=== PATIENT | male | born 1935 | race American Indian/Alaskan Native ===

== ENCOUNTER 2019-07-09 13:02 | Emergency (ER) | payer OTHER ==
--- OUTSIDE RECORDS SUMMARY | 2019-07-09 13:05 | XMS REPORT ---
:1935 Author Organization eClinicalWorks Care Team Providers Name Role Phone BurrellShankar Provider Role Unavailable Allergies, Adverse Reactions, Alerts Substance Reaction Event Type N.K.D.A. Info Not Available Non Drug Allergy Problems Problem Type Condition Code Onset Dates Condition Status Assessment Mixed hyperlipidemia E78.2 Active Assessment Type 2 diabetes mellitus with E11.8 Active complication, unspecified whether [facility] insulin use Assessment HTN (hypertension) with goal to be I10 Active determined Assessment Noncompliance with dietary Z91.11 Active restriction Assessment Osteoarthritis of both knees, M17.0 Active unspecified osteoarthritis type Assessment Hypothyroidism, unspecified type E03.9 Active Problem HTN (hypertension) with goal to be I10 Active determined Problem Hypothyroidism, unspecified type E03.9 Active Problem Mixed hyperlipidemia E78.2 Active Problem Noncompliance with dietary Z91.11 Active restriction Problem Osteoarthritis of both knees, M17.0 Active unspecified osteoarthritis type Problem Type 2 diabetes mellitus with E11.8 Active complication, unspecified whether [facility] insulin use Medications Medication Code Code Instructions Start End Status Dosage System Date Date Atorvastatin [facility] 04951192682 20 MG Orally Active 1 tablet Calcium Once a day Levothyroxine ND 79750801254 100 MCG Orally Active 1 tablet on Sodium Once a day an empty stomach in the morning Metformin HCl ND 32708614768 1000 MG Orally Active 1 tablet Once a day with a meal Glimepiride ND 15226438735 4 MG Orally Active 1 tablet Twice a day with breakfast or the first main meal of the day Carvedilol ND 49464387294 12.5 MG Orally Active 1 tablet Once a day Meloxicam ND 76963935217 7.5 MG Orally Active 1 tablet Once a day Results No Known Results Summary Purpose eClinicalWorks Submission
--- OUTSIDE RECORDS SUMMARY | 2019-07-09 13:05 | XMS REPORT ---
:1935 Author Organization eClinicalWorks Care Team Providers Name Role Phone Shankar Burrell Provider Role Unavailable Allergies No Known Allergies Problems Problem Type Condition Code Onset Dates Condition Status Problem HTN (hypertension) with goal to be I10 Active determined Problem Hypothyroidism, unspecified type E03.9 Active Problem Mixed hyperlipidemia E78.2 Active Problem Noncompliance with dietary Z91.11 Active restriction Problem Osteoarthritis of both knees, M17.0 Active unspecified osteoarthritis type Problem Type 2 diabetes mellitus with E11.8 Active complication, unspecified whether retirement insulin use Medications Medication Code Code Instructions Start End Status Dosage System Date Date Glimepiride [facility] [address]-74 4 MG Orally Active 1 tablet Twice a day Levothyroxine [facility] 14159132128 100 MCG Orally Active 1 tablet Sodium Once a day on an empty stomach in the morning Carvedilol [facility] 88197763989 12.5 MG Orally Active 1 tablet Once a day Meloxicam [facility] 11311646293 7.5 MG Orally Active 1 tablet Once a day Atorvastatin [facility] 47736458467 20 MG Orally Active 1 tablet Calcium Once a day Metformin HCl [facility] 15475032136 1000 MG Orally Active 1 tablet Once a day with a meal Results No Known Results Summary Purpose eClinicalWorks Submission
--- OUTSIDE RECORDS SUMMARY | 2019-07-09 13:05 | XMS REPORT ---
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
--- OUTSIDE RECORDS SUMMARY | 2019-07-09 13:05 | XMS REPORT ---
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 Problem Mixed hyperlipidemia E78.2 Active Problem HTN (hypertension) with goal to be I10 Active determined Problem Type 2 diabetes mellitus with E11.8 Active complication, unspecified whether terminal manager insulin use Problem Noncompliance with dietary Z91.11 Active restriction Medications Medication Code Code Instructions Start End Status Dosage System Date Date Meloxicam ND 97679281842 7.5 MG Orally Active 1 tablet Once a day Metformin HCl ND 19695420489 1000 MG Orally Active 1 tablet TWICE A DAY with a meal One Touch Ultra ND 528307844864 1 In Vitro Sep 09, Aug Active with Test Strips twice daily 2018, testing (ICD 10: E11.8) 2021 device Carvedilol ND 65864617341 12.5 MG Orally Active 1 tablet Once a day Levothyroxine ND 89450546352 100 MCG Orally Active 1 tablet on Sodium Once a day an empty stomach in the morning Glimepiride ND 35009800895 4 MG Orally Active 1 tablet Twice a day with breakfast or the first main meal of the day Tradjenta ND 39905272537 5 MG Orally Sep 09, Active 1 tablet Once a day 2018 Lisinopril ND 92347457309 2.5 MG Orally Sep 09, Active 1 tablet Once a day 2018 Atorvastatin ND 54063536822 20 MG Orally Active 1 tablet Calcium Once a day Results No Known Results Summary Purpose eClinicalWorks Submission
--- OUTSIDE RECORDS SUMMARY | 2019-07-09 13:05 | XMS REPORT ---
:1935 Author Organization eClinicalWorks Care Team Providers Name Role Phone Indra Shankar Provider Role Unavailable Allergies, Adverse Reactions, Alerts Substance Reaction Event Type N.K.D.A. 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 Problem Mixed hyperlipidemia E78.2 Active Problem HTN (hypertension) with goal to be I10 Active determined Problem Type 2 diabetes mellitus with E11.8 Active complication, 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 Problem Noncompliance with dietary Z91.11 Active restriction Assessment Need for pneumococcal vaccine Z23 Active Assessment Hypothyroidism, unspecified type E03.9 Active Assessment Mixed hyperlipidemia E78.2 Active Assessment Noncompliance with dietary Z91.11 Active restriction Assessment HTN (hypertension) with goal to be I10 Active determined Assessment Osteoarthritis of both knees, M17.0 Active unspecified osteoarthritis type Assessment 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 Medications Medication Code Code Instructions Start End Status Dosage System Date Date Metformin HCl ND 35857661633 1000 MG Orally Active 1 tablet TWICE A DAY with a meal Meloxicam ND 74523289507 7.5 MG Orally Active 1 tablet Once a day Lisinopril ND 76744578406 2.5 MG Orally Sep 09, Active 1 tablet Once a day 2018 Levothyroxine ND 79935587221 100 MCG Orally Active 1 tablet on Sodium Once a day an empty stomach in the morning Atorvastatin ND 27398205838 20 MG Orally Active 1 tablet Calcium Once a day One Touch Ultra ND 966858301413 1 In Vitro Sep 09October Active with Test Strips twice daily 2018 device Tradjenta ND 03507275418 5 MG Orally Feb 27, Active 1 tablet Once a day 2018 Carvedilol [facility] 40171577648 12.5 MG Orally Active 1 tablet Once a day Glimepiride [facility] 31180774698 4 MG Orally Active 1 tablet Twice a day with breakfast or the first main meal of the day Results No Known Results Immunizations Vaccine Administration Date Prevnar 13 -Pneumonia Vaccine Sep 09, 2018 Summary Purpose eClinicalWorks Submission
--- OUTSIDE RECORDS SUMMARY | 2019-07-09 13:06 | XMS REPORT ---
:1935 Author Organization eClinicalWorks Care Team Providers Name Role Phone Indra Shankar Provider Role Unavailable Allergies, Adverse Reactions, Alerts Substance Reaction Event Type N.K.D.A. 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 Problem Mixed hyperlipidemia E78.2 Active Problem HTN (hypertension) with goal to be I10 Active determined Problem Type 2 diabetes mellitus with E11.8 Active complication, unspecified whether residential insulin use Problem Noncompliance with dietary Z91.11 Active restriction Assessment Osteoarthritis of both knees, M17.0 Active unspecified osteoarthritis type Assessment Hypothyroidism, unspecified type E03.9 Active Assessment Mixed hyperlipidemia E78.2 Active Assessment Noncompliance with dietary Z91.11 Active restriction Assessment HTN (hypertension) with goal to be I10 Active determined Medications Medication Code Code Instructions Start End Status Dosage System Date Date Carvedilol [facility] 45322479054 12.5 MG Orally Active 1 tablet Once a day One Touch Ultra [facility] 700385070925 1 In Vitro Sep 09Aug Active with Test Strips twice daily 2018, testing (ICD 10: E11.8) 2021 device Tradjenta ND 40220461345 5 MG Orally Active 1 tablet Once a day Metformin HCl ND 22647448446 1000 MG Orally Active 1 tablet TWICE A DAY with a meal Meloxicam ND 36619183419 7.5 MG Orally Active 1 tablet Once a day Atorvastatin ND 55936639985 20 MG Orally Active 1 tablet Calcium Once a day Lisinopril ND 51817396816 2.5 MG Orally Active 1 tablet Once a day Glimepiride ND 10038228239 4 MG Orally Active 1 tablet Once a day with breakfast or the first main meal of the day Levothyroxine [facility] 01479848622 100 MCG Orally Active 1 tablet on Sodium Once a day an empty stomach in the morning Results No Known Results Summary Purpose eClinicalWorks Submission
--- OUTSIDE RECORDS SUMMARY | 2019-07-09 13:06 | XMS REPORT ---
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 Problem Noncompliance with dietary Z91.11 Active restriction Assessment Osteoarthritis of both knees, M17.0 Active unspecified osteoarthritis type Assessment Hypothyroidism, unspecified type E03.9 Active Assessment Mixed hyperlipidemia E78.2 Active Assessment Noncompliance with dietary Z91.11 Active restriction Assessment HTN (hypertension) with goal to be I10 Active determined Medications Medication Code Code Instructions Start End Status Dosage System Date Date Atorvastatin [facility] 07629833154 20 MG Orally Active 1 tablet Calcium Once a day Glimepiride ND 10561805364 4 MG Orally Active 1 tablet Twice a day with breakfast or the first main meal of the day Tradjenta [facility] 82231210406 5 MG Orally Active 1 tablet Once a day Metformin HCl ND 96361146833 1000 MG Orally Active 1 tablet TWICE A DAY with a meal Meloxicam ND 29374638997 7.5 MG Orally Active 1 tablet Once a day Carvedilol ND 15087838685 12.5 MG Orally Active 1 tablet Once a day Lisinopril ND 86569285118 2.5 MG Orally Active 1 tablet Once a day Levothyroxine ND 70954936808 100 MCG Orally Active 1 tablet on Sodium Once a day an empty stomach in the morning One Touch Ultra [facility] 426536675791 1 In Vitro Sep 09, Aug Active with Test Strips twice daily 2018, testing (ICD 10: E11.8) 2021 device Results No Known Results Summary Purpose eClinicalWorks Submission
--- OUTSIDE RECORDS SUMMARY | 2019-07-09 13:06 | XMS REPORT ---
:1935 Author Organization eClinicalWorks Care Team Providers Name Role Phone BurrellKarenh Provider Role Unavailable Allergies, Adverse Reactions, Alerts Substance Reaction Event Type N.K.D.A. 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 Problem Mixed hyperlipidemia E78.2 Active Problem HTN (hypertension) with goal to be I10 Active determined Problem Type 2 diabetes mellitus with E11.8 Active complication, unspecified whether termination clerk insulin use Problem Noncompliance with dietary Z91.11 Active restriction Medications Medication Code Code Instructions Start End Status Dosage System Date Date Levothyroxine [facility] 81819737797 100 MCG Orally Active 1 tablet on Sodium Once a day an empty stomach in the morning Carvedilol [facility] 38801406190 12.5 MG Orally Active 1 tablet Once a day Metformin HCl ND 06416171201 1000 MG Orally Active 1 tablet with TWICE A DAY a meal Tradjenta [facility] 47910075898 5 MG Orally Active 1 tablet Once a day Lisinopril ND 29174537894 2.5 MG Orally Active 1 tablet Once a day Atorvastatin ND 33131505924 20 MG Orally Active 1 tablet Calcium Once a day Mupirocin [facility] 41584523736 2 % Externally Jul 01Jun Active 1 application Calcium BID 2018 Doxycycline [facility] 79411697637 100 MG Orally Jul 01Jun Active 1 tablet Hyclate Twice a day 2018 Glimepiride [facility] 19318127765 4 MG Orally Active 1 tablet with Once a day breakfast or the first main meal of the day Meloxicam ND 89077595985 7.5 MG Orally Active 1 tablet Once a day One Touch Ultra [facility] 144934327267 1 In Vitro Feb 27, Aug Active with testing Test Strips twice daily 2018, device (ICD 10: 2021 E11.8) Results No Known Results Summary Purpose eClinicalWorks Submission
--- NOTE | 2019-07-09 15:13 | RAD REPORT ---
EXAM DESCRIPTION: USExtremity Venous Uni Ltd07/09/2019 2:55 pm CLINICAL HISTORY: Right leg pain and swelling. COMPARISON: None. FINDINGS: Right common femoral, superficial femoral, popliteal and right posterior tibial veins are compressible and demonstrate augmentation. Doppler demonstrates good flow. IMPRESSION: No evidence of deep venous thrombosis involving the right lower extremity.
[2019-07-09 15:31] LABS: Absolute Lymphocytes (CBC) 2.8 K/uL (0.7-4.9); Basophils % 1.3 % (0-1.3); Hematocrit 45.1 % (39.6-49.0); Lymphocytes % 30.2 % (15.3-44.8); MPV 8.9 fL (7.6-11.3); RBC Red Blood Cell Count 5.26 M/uL (4.33-5.43)
[2019-07-09] MEDS ORDERED: NA CHLORIDE 0.9% 100 ML IV ONE (15:39)
[2019-07-09] MEDS ORDERED: CEFAZOLIN/SWI 1gm 1 GM/10 ML SYR ONE (15:39)
[2019-07-09 15:41] LABS: Potassium 4.9 mmol/L (3.5-5.1)
--- NOTE | 2019-07-09 16:15 | ER ---
Nurse's Notes [facility] Name: Lizette Cazares Age: 84 yrs Sex: Male : 1935 Arrival Date: 07/09/2019 Time: 13:04 Bed 6 Private MD: Shankar Burrell Diagnosis: Cellulitis of right lower limb;Tinea corporis Presentation: 07/09 13:17 Presenting complaint: Worsening right lower leg wound x 1 week. Started doxycycline and hb Bactroban 07/01. Transition of care: patient was not received from another setting of care. Onset of symptoms was July 09, 2019. Risk Assessment: Do you want to hurt yourself or someone else? Patient reports no desire to harm self or others. Initial Sepsis Screen: Does the patient meet any 2 criteria? No. Patient's initial sepsis screen is negative. Does the patient have a suspected source of infection? No. Patient's initial sepsis screen is negative. Care prior to arrival: None. 13:17 Method Of Arrival: Ambulatory hb 13:17 Acuity: JEREMIAH 3 hb Triage Assessment: 13:20 General: Appears in no apparent distress. comfortable, Behavior is calm, cooperative, bp appropriate for age. Pain: Complains of pain in right [place]. EENT: No deficits noted. Neuro: No deficits noted. Cardiovascular: No deficits noted. Respiratory: No deficits noted. GI: No signs and/or symptoms were reported involving the gastrointestinal system. : No signs and/or symptoms were reported regarding the genitourinary system. Derm: Wound noted right leg. Musculoskeletal: No deficits noted. Historical: - Allergies: 13:19 No Known Allergies; hb - Immunization history:: Adult Immunizations up to date. - Social history:: Smoking status: Patient/guardian denies using tobacco. - Ebola Screening: : No symptoms or risks identified at this time. Screenin:20 Abuse screen: Denies threats or abuse. Denies injuries from another. Nutritional bp screening: No deficits noted. Tuberculosis screening: No symptoms or risk factors identified. Fall Risk None identified. Assessment: 13:20 General: SEE TRIAGE NOTE. bp 14:19 Reassessment: PT TO U/S. bp 15:00 Reassessment: PT RETURNED FROM U/S. bp 16:09 Reassessment: LAB AND RAD RESULTS PENDING. VS STABLE ON MONITOR. bp 16:57 Reassessment: PT D/C HOME AMBULATORY WITH FAMILY, DX WITH CELLULITIS. bp Vital Signs: 13:19 BP 143 / 81; Pulse 68; Resp 16; Temp 97.7; Pulse Ox 99% ; Weight 85.28 kg; Height 5 ft. hb 8 in. (172.72 cm); Pain 2/10; 14:21 BP 117 / 64; Pulse 76; Resp 16; Pulse Ox 100% ; bp 15:12 BP 125 / 58; Pulse 77; Resp 16; Pulse Ox 94% ; bp 16:09 BP 123 / 60; Pulse 72; Resp 16; Pulse Ox 97% ; bp 16:57 BP 121 / 65; Pulse 75; Resp 16; Temp 98; Pulse Ox 98% ; bp 13:19 Body Mass Index 28.59 (85.28 kg, 172.72 cm) hb ED Course: 13:04 Patient arrived in ED. as 13:04 Shankar Burrell DO is Private Physician. as 13:18 Triage completed. hb 13:19 Ronnie Multani MD is Attending Physician. kdr 13:19 Arm band placed on. hb 13:20 Patient has correct armband on for positive identification. Bed in low position. Call bp light in reach. Side rails up X2. 13:50 Zack Vargas, ERIK is Primary Nurse. bp 14:56 US Extremity Venous Unilateral Ltd In Process Unspecified. EDMS 15:10 Inserted saline lock: 22 gauge in right antecubital area, using aseptic technique. bp Blood collected. 16:13 Shankar Burrell DO is Referral Physician. kdr 16:57 No provider procedures requiring assistance completed. IV discontinued, intact, bp bleeding controlled, No redness/swelling at site. Pressure dressing applied. Administered Medications: 15:45 Drug: Ancef 1 grams Route: IVPB; Site: left antecubital; bp 16:59 Follow up: IV Status: Completed infusion; IV Intake: 50ml bp Intake: 16:59 IV: 50ml; Total: 50ml. bp Outcome: 16:14 Discharge ordered by . kdr 16:57 Discharged to home ambulatory, with family. bp 16:57 Condition: stable 16:57 Discharge instructions given to patient, family, Instructed on discharge instructions, follow up and referral plans. medication usage, wound care, Demonstrated understanding of instructions, follow-up care, medications, wound care, Prescriptions given X 2. 16:59 Patient left the ED. bp Signatures: Dispatcher [employer] EDMS Ronnie Multani MD MD kdr Martinez, Amelia as Baxter, Heather, RN RN Zack Arredondo RN RN bp Corrections: (The following items were deleted from the chart) 14:22 14:19 Reassessment: VS STABLE ON MONITOR, RESULTS PENDING bp bp
--- NOTE | 2019-07-09 16:16 | EDPHYS ---
Physician Documentation [facility] Name: Lizette Cazares Age: 84 yrs Sex: Male : 1935 Arrival Date: 07/09/2019 Time: 13:04 Bed 6 Private MD: [facility] ED Physician Ronnie Multani HPI: 07/09 16:46 This 84 yrs old Other Male presents to ER via Ambulatory with complaints of Leg kdr Infection. 16:46 This 84 yrs old Other Male presents to ER via Ambulatory with complaints of Leg kdr Infection. 16:46 The patient presents with swelling, tenderness. kdr 16:46 The patient has had numerous annular lesions to his right lower extremity over the last kdr two weeks and over the last week, he has had swelling of the right leg from the knee down. The has had multiple lesions also appear on his bilateral proximal upper extremities and low back. The lesions itch and are scabbed over. Severity of symptoms: At their worst the symptoms were mild in the emergency department the symptoms are unchanged. The patient has not experienced similar symptoms in the past. The patient has been recently seen by a physician: the patient's primary care provider, The patient was put on Doxycycline and a steroid cream without any improvement for the past week. Historical: - Allergies: 13:19 No Known Allergies; hb - Immunization history:: Adult Immunizations up to date. - Social history:: Smoking status: Patient/guardian denies using tobacco. - Ebola Screening: : No symptoms or risks identified at this time. ROS: 16:46 Constitutional: Negative for fever, chills, and weight loss, Eyes: Negative for injury, kdr pain, redness, and discharge, ENT: Negative for injury, pain, and discharge, Neck: Negative for injury, pain, and swelling, Cardiovascular: Negative for chest pain, palpitations, and edema, Respiratory: Negative for shortness of breath, cough, wheezing, and pleuritic chest pain, Abdomen/GI: Negative for abdominal pain, nausea, vomiting, diarrhea, and constipation, Back: Negative for injury and pain, : Negative for injury, bleeding, discharge, and swelling, Neuro: Negative for headache, weakness, numbness, tingling, and seizure activity. Psych: Negative for depression, anxiety, suicide ideation, homicidal ideation, and hallucinations, Allergy/Immunology: Negative for hives, rash, and allergies, Endocrine: Negative for neck swelling, polydipsia, polyuria, polyphagia, and marked weight changes, Hematologic/Lymphatic: Negative for swollen nodes, abnormal bleeding, and unusual bruising. 16:46 MS/extremity: Positive for swelling, of the right leg. 16:46 Skin: Positive for cellulitis, lesions, of the coccyx, right bicep, right tricep, left bicep, left tricep and right leg. Exam: 16:46 Constitutional: This is a well developed, well nourished patient who is awake, alert, kdr and in no acute distress. Head/Face: Normocephalic, atraumatic. Eyes: Pupils equal round and reactive to light, extra-ocular motions intact. Lids and lashes normal. Conjunctiva and sclera are non-icteric and not injected. Cornea within normal limits. Periorbital areas with no swelling, redness, or edema. Neck: Trachea midline, no thyromegaly or masses palpated, and no cervical lymphadenopathy. Supple, full range of motion without nuchal rigidity, or vertebral point tenderness. No Meningismus. Chest/axilla: Normal chest wall appearance and motion. Nontender with no deformity. No lesions are appreciated. Cardiovascular: Regular rate and rhythm with a normal S1 and S2. No gallops, murmurs, or rubs. Normal PMI, no JVD. No pulse deficits. Respiratory: Lungs have equal breath sounds bilaterally, clear to auscultation and percussion. No rales, rhonchi or wheezes noted. No increased work of breathing, no retractions or nasal flaring. Abdomen/GI: Soft, non-tender, with normal bowel sounds. No distension or tympany. No guarding or rebound. No evidence of tenderness throughout. Back: No spinal tenderness. No costovertebral tenderness. Full range of motion. MS/ Extremity: Pulses equal, no cyanosis. Neurovascular intact. Full, normal range of motion. Neuro: Awake and alert, GCS 15, oriented to person, place, time, and situation. Cranial nerves II-XII grossly intact. Motor strength 5/5 in all extremities. Sensory grossly intact. Cerebellar exam normal. Normal gait. Psych: Awake, alert, with orientation to person, place and time. Behavior, mood, and affect are within normal limits. 16:46 Musculoskeletal/extremity: ROM: no acute changes, Circulation is intact in all extremities. Sensation intact. Compartment Syndrome exam of affected extremity: is normal. no pain, no numbness, no tingling, no sensation deficit, no palor, no weak pulses, The patient has swelling to the right leg from the knee down. There are a small number of annular lesions on the extremity but no other focus of infection and no cords in the calf. 16:46 Skin: lesion(s), noted, and can be described as erythematous, raised, tender, Anular . Vital Signs: 13:19 BP 143 / 81; Pulse 68; Resp 16; Temp 97.7; Pulse Ox 99% ; Weight 85.28 kg; Height 5 ft. hb 8 in. (172.72 cm); Pain 2/10; 14:21 BP 117 / 64; Pulse 76; Resp 16; Pulse Ox 100% ; bp 15:12 BP 125 / 58; Pulse 77; Resp 16; Pulse Ox 94% ; bp 16:09 BP 123 / 60; Pulse 72; Resp 16; Pulse Ox 97% ; bp 16:57 BP 121 / 65; Pulse 75; Resp 16; Temp 98; Pulse Ox 98% ; bp 13:19 Body Mass Index 28.59 (85.28 kg, 172.72 cm) hb MDM: 16:14 Patient medically screened. kdr 16:46 Data reviewed: vital signs, nurses notes, lab test result(s), radiologic studies. kdr Counseling: I had a detailed discussion with the patient and/or guardian regarding: the historical points, exam findings, and any diagnostic results supporting the discharge/admit diagnosis, lab results, radiology results, the need for outpatient follow up. 07/09 14:15 Order name: Blood Culture Adult (2) kdr 07/09 14:15 Order name: CBC with Diff; Complete Time: 15:45 kdr 07/09 14:15 Order name: Chem 7; Complete Time: 15:45 kdr 07/09 14:15 Order name: US Extremity Venous Unilateral Ltd; Complete Time: 15:31 kdr Administered Medications: 15:45 Drug: Ancef 1 grams Route: IVPB; Site: left antecubital; bp 16:59 Follow up: IV Status: Completed infusion; IV Intake: 50ml bp Disposition: 07/09/19 16:14 Discharged to Home. Impression: Cellulitis of right lower limb, Tinea corporis. - Condition is Stable. - Discharge Instructions: Body Ringworm, Cellulitis, Adult, [id number]. - Prescriptions for ketoconazole 2 % Topical cream - apply 1 application by TOPICAL route 2 times per day Apply to new or existing wounds until healing over; 1 tube. Keflex 500 mg Oral Capsule - take 1 capsule by ORAL route every 6 hours for 10 days; 40 capsule. - Medication Reconciliation Form, Thank You Letter, Antibiotic Education form. - Follow up: Shankar Burrell DO; When: 2 - 3 days; Reason: If symptoms return, Further diagnostic work-up, Recheck today's complaints, Continuance of care, Re-evaluation by your physician. - Problem is an ongoing problem. - Symptoms are unchanged. Signatures: Dispatcher [employer] EDMS Ronnie Multani MD MD kdr Sneha Hernández, ERIK RN Zack Vargas RN RN bp Corrections: (The following items were deleted from the chart) 16:59 16:14 07/09/2019 16:14 Discharged to Home. Impression: Cellulitis of right lower limb; bp Tinea corporis. Condition is Stable. Forms are Medication Reconciliation Form, Thank You Letter, Antibiotic Education, Prescription Opioid Use. Follow up: Shankar Burrell; When: 2 - 3 days; Reason: If symptoms return, Further diagnostic work-up, Recheck today's complaints, Continuance of care, Re-evaluation by your physician. Problem is an ongoing problem. Symptoms are unchanged. kdr
[2019-07-09 17:12] VITALS: BP 121/65; TEMP 98; O2SAT 98
== END 2019-07-09 16:59 | disposition home or self-care (01) ==
LOC: ER 13:02
DX: L03.115 Cellulitis of right lower limb (principal); B35.4 Tinea corporis
CPT/HCPCS: 96365; 87040 ×2; 85025; 80048; 36415; 93971; 99284; J0690